=== PATIENT | female | born 1955 | race African-American/Black ===

== ENCOUNTER 2018-05-09 16:15 | Emergency (ER) | payer BC ==
[2018-05-09 17:37] LABS: Absolute Monocytes 0.6 K/uL (0.1-1.3); Absolute Neutrophil 2.2 K/uL (1.8-8.0); Basophils % 1.1 % (0-1.3); Hematocrit 43.2 % (36.0-45.0); Lymphocytes % 46.8 % (15.3-44.8); MPV 7.7 fL (7.6-11.3); Monocytes % 10.1 % (3.3-12.3); RBC Red Blood Cell Count 4.61 M/uL (3.86-4.86)
[2018-05-09 17:49] LABS: Albumin 3.9 g/dL (3.4-5.0); Bilirubin Direct 0.1 mg/dL (0-0.2); Bilirubin Total 0.6 mg/dL (0.2-1.0); Potassium 3.7 mmol/L (3.5-5.1); Protein, Total 8.4 g/dL (6.4-8.2)
--- NOTE | 2018-05-09 18:36 | RAD REPORT ---
EXAM DESCRIPTION: CT - Abdomen Pelvis W Contrast - 05/09/2018 6:28 pm COMPARISON: None. TECHNIQUE: Biphasic, helical CT imaging of the abdomen and pelvis was performed following 100 ml non -ionic IV contrast. Oral contrast was given. All CT scans are performed using dose optimization technique as appropriate and may include automated exposure control or mA/KV adjustment according to patient size. FINDINGS: No suspicious findings in the lung bases. The liver, spleen, and pancreas show no suspicious findings. Gallbladder and biliary tree are also wi thout suspicious finding. Symmetric renal function is seen with no hydronephrosis or suspicious renal mass. No pyelonephritis o r acute parenchymal process. No bladder abnormalities. No adrenal abnormalities. No dilated bowel loops or bowel wall thickening. Patient has a mobile cecum configuration with the ce cum in the anterior mid abdomen. No appendicitis findings. No free air, free fluid or inflammatory st randing. No hernia, mass or bulky lymphadenopathy. Uterus and ovaries show no suspicious findings. P hleboliths are seen in the pelvic floor. No suspicious bony findings. Degenerative disc disease evident at L3-4 and L4-5. No acute vascular fi nding. IMPRESSION: Contrast enhanced CT abdomen and pelvis showing no acute finding. Nonacute findings det elizabeth in the body of the report.
--- NOTE | 2018-05-09 18:52 | EDPHYS ---
Physician Documentation [facility] Name: Carmella Cunha Age: 62 yrs Sex: Female : 1955 Arrival Date: 05/09/2018 Time: 16:17 Bed 17 Private MD: Rubina Finch ED Physician Terry Field HPI: 05/09 18:48 This 62 yrs old Black Female presents to ER via Ambulatory with complaints of Abdominal kdr Pain, Diarrhea. 18:48 The patient presents to the emergency department with diarrhea, that is intermittent, kdr abdominal pain, of the suprapubic area, right lower quadrant and left lower quadrant, described as achy, crampy, intermittent, vague,\E\ waxing and waning. Onset: The symptoms/episode began/occurred gradually, 1 week(s) ago. Possible causes: unknown. The symptoms are aggravated by movement, food , The symptoms are alleviated by nothing. Associated signs and symptoms: The patient has no apparent associated signs or symptoms. Severity of symptoms: At their worst the symptoms were mild in the emergency department the symptoms are unchanged. The patient has not experienced similar symptoms in the past. The patient has not recently seen a physician. Historical: - Allergies: 16:21 No Known Allergies; sg - Home Meds: 16:21 None [Active]; sg - PMHx: 16:21 None; sg - PSHx: 16:21 Tubal ligation; sg - Immunization history:: Adult Immunizations up to date. - Social history:: Smoking status: Patient/guardian denies using tobacco. - Ebola Screening: : Patient negative for fever greater than or equal to 101.5 degrees Fahrenheit, and additional compatible Ebola Virus Disease symptoms Patient denies exposure to infectious person Patient denies travel to an Ebola-affected area in the 21 days before illness onset No symptoms or risks identified at this time. ROS: 18:48 Constitutional: Negative for fever, chills, and weight loss, Eyes: Negative for injury, kdr pain, redness, and discharge, ENT: Negative for injury, pain, and discharge, Neck: Negative for injury, pain, and swelling, Cardiovascular: Negative for chest pain, palpitations, and edema, Respiratory: Negative for shortness of breath, cough, wheezing, and pleuritic chest pain, Back: Negative for injury and pain, : Negative for injury, bleeding, discharge, and swelling, MS/Extremity: Negative for injury and deformity, Skin: Negative for injury, rash, and discoloration, Neuro: Negative for headache, weakness, numbness, tingling, and seizure activity. Psych: Negative for depression, anxiety, suicide ideation, homicidal ideation, and hallucinations, Allergy/Immunology: Negative for hives, rash, and allergies, Endocrine: Negative for neck swelling, polydipsia, polyuria, polyphagia, and marked weight changes, Hematologic/Lymphatic: Negative for swollen nodes, abnormal bleeding, and unusual bruising. 18:48 Abdomen/GI: Positive for abdominal pain, diarrhea, abdominal cramps, abdominal distension, Negative for black/tarry stool, rectal pain, rectal bleeding, bowel incontinence. Exam: 18:48 Constitutional: This is a well developed, well nourished patient who is awake, alert, kdr and in no acute distress. Head/Face: Normocephalic, atraumatic. Eyes: Pupils equal round and reactive to light, extra-ocular motions intact. Lids and lashes normal. Conjunctiva and sclera are non-icteric and not injected. Cornea within normal limits. Periorbital areas with no swelling, redness, or edema. Neck: Trachea midline, no thyromegaly or masses palpated, and no cervical lymphadenopathy. Supple, full range of motion without nuchal rigidity, or vertebral point tenderness. No Meningismus. Chest/axilla: Normal chest wall appearance and motion. Nontender with no deformity. No lesions are appreciated. Cardiovascular: Regular rate and rhythm with a normal S1 and S2. No gallops, murmurs, or rubs. Normal PMI, no JVD. No pulse deficits. Respiratory: Lungs have equal breath sounds bilaterally, clear to auscultation and percussion. No rales, rhonchi or wheezes noted. No increased work of breathing, no retractions or nasal flaring. Back: No spinal tenderness. No costovertebral tenderness. Full range of motion. Skin: Warm, dry with normal turgor. Normal color with no rashes, no lesions, and no evidence of cellulitis. MS/ Extremity: Pulses equal, no cyanosis. Neurovascular intact. Full, normal range of motion. Neuro: Awake and alert, GCS 15, oriented to person, place, time, and situation. Cranial nerves II-XII grossly intact. Motor strength 5/5 in all extremities. Sensory grossly intact. Cerebellar exam normal. Normal gait. Psych: Awake, alert, with orientation to person, place and time. Behavior, mood, and affect are within normal limits. 18:48 Abdomen/GI: Inspection: obese Bowel sounds: active, Palpation: soft, mild abdominal tenderness, in the suprapubic area, right lower quadrant and left lower quadrant. Vital Signs: 16:22 BP 151 / 97; Pulse 87; Resp 18; Temp 98.6; Pulse Ox 100% ; Weight 110.22 kg; Height 5 sg ft. 7 in. (170.18 cm); 17:45 BP 149 / 77; Pulse 82; Resp 18; Pulse Ox 97% on R/A; aj1 18:40 BP 147 / 81; Pulse 90; Resp 20; Pulse Ox 97% on R/A; aj1 16:22 Body Mass Index 38.06 (110.22 kg, 170.18 cm) sg MDM: 18:48 Data reviewed: vital signs, nurses notes, lab test result(s), radiologic studies. kdr Counseling: I had a detailed discussion with the patient and/or guardian regarding: the historical points, exam findings, and any diagnostic results supporting the discharge/admit diagnosis, lab results, radiology results, the need for outpatient follow up. 18:52 Patient medically screened. [facility] 05/09 16:31 Order name: Basic Metabolic Panel; Complete Time: 18:06 [facility] 05/09 16:31 Order name: CBC with Diff; Complete Time: 18:06 [facility] 05/09 16:31 Order name: Creatinine for Radiology; Complete Time: 18:06 [facility] 05/09 16:31 Order name: Hepatic Function; Complete Time: 18:06 [facility] 05/09 16:31 Order name: Lipase; Complete Time: 18:06 [facility] 05/09 18:12 Order name: CT Abd/Pelvis - W/Contrast; Complete Time: 18:47 [facility] 05/09 16:31 Order name: IV Saline Lock; Complete Time: 17:31 [facility] 05/09 16:31 Order name: Labs collected and sent; Complete Time: 17:31 kdr Administered Medications: 19:17 Drug: Cipro 500 mg Route: PO; jb4 19:18 Follow up: Response: No adverse reaction; Pain is unchanged, physician notified; jb4 Medication administered at discharge. 19:17 Drug: Flagyl 500 mg Route: PO; jb4 19:17 Follow up: Response: No adverse reaction; Medication administered at discharge. jb4 Disposition: 05/09/18 18:52 Discharged to Home. Impression: Diarrhea, unspecified, Abdominal and pelvic pain. - Condition is Stable. - Discharge Instructions: Food Choices to Help Relieve Diarrhea, Adult, Abdominal Pain, Adult, [id number], Diarrhea, Adult, [id number]. - Prescriptions for Cipro 500 mg Oral Tablet - take 1 tablet by ORAL route every 12 hours for 10 days; 20 tablet. Flagyl 500 mg Oral Tablet - take 1 tablet by ORAL route every 6 hours for 10 days; 40 tablet. Zofran 4 mg Oral Tablet - take 1 tablet by ORAL route every 12 hours As needed; 6 tablet. Tramadol 50 mg Oral Tablet - take 1 tablet by ORAL route every 8 hours as needed; 12 tablet. Lomotil 2.5- 0.025 mg Oral Tablet - take 2 tablet by ORAL route once daily As needed; 20 tablet. - Medication Reconciliation Form, Thank You Letter, Antibiotic Education, Prescription Opioid Use form. - Follow up: Rubina Finch MD; When: 2 - 3 days; Reason: If symptoms return, Further diagnostic work-up, Recheck today's complaints, Continuance of care, Re-evaluation by your physician. - Problem is an ongoing problem. - Symptoms have improved. Signatures: Dispatcher [employer] EDMS Be Begum RN RN Terry Field MD MD [facility] Faizan Randall RN RN jb4 Corrections: (The following items were deleted from the chart) 19:20 18:52 05/09/2018 18:52 Discharged to Home. Impression: Diarrhea, unspecified; Abdominal jb4 and pelvic pain. Condition is Stable. Forms are Medication Reconciliation Form, Thank You Letter, Antibiotic Education, Prescription Opioid Use. Follow up: Rubina Finch; When: 2 - 3 days; Reason: If symptoms return, Further diagnostic work-up, Recheck today's complaints, Continuance of care, Re-evaluation by your physician. Problem is an ongoing problem. Symptoms have improved. kdr
--- NOTE | 2018-05-09 18:52 | ER ---
Nurse's Notes [facility] Name: Carmella Cunha Age: 62 yrs Sex: Female : 1955 Arrival Date: 05/09/2018 Time: 16:17 Bed 17 Private MD: Rubina Finch Diagnosis: Diarrhea, unspecified;Abdominal and pelvic pain Presentation: 05/09 16:23 Presenting complaint: Patient states: Lower abd pain that is sharp, reports abdominal sg area feels bloated, pt states that she has had diarrhea for 3 days now, has been taking OTC antidiarrheal medication starting this morning, the diarrhea has lessened but the pain continues as well as having lower abd cramping, denies any urinary symptoms at this time. Transition of care: patient was not received from another setting of care. Onset of symptoms was May 09, 2018. Risk Assessment: Do you want to hurt yourself or someone else? Patient reports no desire to harm self or others. Initial Sepsis Screen: Does the patient meet any 2 criteria? No. Patient's initial sepsis screen is negative. Does the patient have a suspected source of infection? Yes: Acute abdominal pain. Care prior to arrival: None. 16:23 Method Of Arrival: Ambulatory sg 16:23 Acuity: KILO 3 sg Historical: - Allergies: 16:21 No Known Allergies; sg - Home Meds: 16:21 None [Active]; sg - PMHx: 16:21 None; sg - PSHx: 16:21 Tubal ligation; sg - Immunization history:: Adult Immunizations up to date. - Social history:: Smoking status: Patient/guardian denies using tobacco. - Ebola Screening: : Patient negative for fever greater than or equal to 101.5 degrees Fahrenheit, and additional compatible Ebola Virus Disease symptoms Patient denies exposure to infectious person Patient denies travel to an Ebola-affected area in the 21 days before illness onset No symptoms or risks identified at this time. Screenin:45 Abuse screen: Denies threats or abuse. Denies injuries from another. Nutritional aj1 screening: No deficits noted. Tuberculosis screening: No symptoms or risk factors identified. 19:00 Fall Risk IV access (20 points). Total Norman Fall Scale indicates No Risk (0-24 pts). jb4 Assessment: 17:45 General: Appears in no apparent distress. uncomfortable, Behavior is calm, cooperative, aj1 appropriate for age. Pain: Complains of pain in right lower quadrant Pain does not radiate. Quality of pain is described as sharp, Pain began 2-3 days ago. Neuro: Level of Consciousness is awake, alert, obeys commands, Oriented to person, place, time, situation. Cardiovascular: Patient's skin is warm and dry. Respiratory: Airway is patent Respiratory effort is even, unlabored, Respiratory pattern is regular, symmetrical. GI: Abdomen is round Bowel sounds present X 4 quads. Abd is soft X 4 quads Reports bloating, cramping, diarrhea, Patient currently denies vomiting. : No signs and/or symptoms were reported regarding the genitourinary system. EENT: No signs and/or symptoms were reported regarding the EENT system. Derm: No signs and/or symptoms reported regarding the dermatologic system. Skin is pink, warm \T\ dry. normal. Musculoskeletal: No signs and/or symptoms reported regarding the musculoskeletal system. Circulation, motion, and sensation intact. 18:31 Reassessment: Patient appears in no apparent distress at this time. No changes from aj1 previously documented assessment. Patient and/or family updated on plan of care and expected duration. Pain level reassessed. Patient is alert, oriented x 3, equal unlabored respirations, skin warm/dry/pink. Vital Signs: 16:22 BP 151 / 97; Pulse 87; Resp 18; Temp 98.6; Pulse Ox 100% ; Weight 110.22 kg; Height 5 sg ft. 7 in. (170.18 cm); 17:45 BP 149 / 77; Pulse 82; Resp 18; Pulse Ox 97% on R/A; aj1 18:40 BP 147 / 81; Pulse 90; Resp 20; Pulse Ox 97% on R/A; aj1 16:22 Body Mass Index 38.06 (110.22 kg, 170.18 cm) sg ED Course: 16:17 Patient arrived in ED. as 16:17 Rubina Finch MD is Private Physician. as 16:22 Arm band placed on. sg 16:25 Triage completed. sg 16:31 Terry Field MD is Attending Physician. kdr 17:13 Ana Feliciano RN is Primary Nurse. aj1 17:45 Patient has correct armband on for positive identification. Bed in low position. Call aj1 light in reach. Side rails up X 1. 17:45 No provider procedures requiring assistance completed. aj1 17:48 Inserted saline lock: 22 gauge in left antecubital area, using aseptic technique. Blood [facility] collected. 17:48 Initial lab(s) drawn, by me, sent to lab. aj1 18:14 Patient moved to ND via wheelchair. 2 18:27 CT completed. Patient tolerated procedure well. Patient moved back from ND. wi 18:28 CT Abd/Pelvis - W/Contrast In Process Unspecified. EDMS 18:51 Rubina Finch MD is Referral Physician. kdr 19:19 IV discontinued, intact, bleeding controlled. jb4 Administered Medications: 19:17 Drug: Cipro 500 mg Route: PO; jb4 19:18 Follow up: Response: No adverse reaction; Pain is unchanged, physician notified; jb4 Medication administered at discharge. 19:17 Drug: Flagyl 500 mg Route: PO; jb4 19:17 Follow up: Response: No adverse reaction; Medication administered at discharge. jb4 Outcome: 18:52 Discharge ordered by MD. kdr 19:18 Discharged to home ambulatory, with family. jb4 19:18 Condition: stable 19:18 Discharge instructions given to patient, family, Instructed on discharge instructions, follow up and referral plans. medication usage, Demonstrated understanding of instructions, follow-up care, medications, Prescriptions given X 5 19:20 Patient left the ED. jb4 Signatures: Dispatcher [employer] EDWI Ana Feliciano RN RN aj1 Be Begum RN RN sg Rittger, Kevin, MD MD kdr Martinez, Amelia as Bryson, James, RN RN jb4 Jace Jack [facility]
[2018-05-09] MEDS ORDERED: metroNIDAZOLE 500 MG TABLET ONE (19:22)
[2018-05-09] MEDS ORDERED: CIPROFLOXACIN HCL 500 MG TAB ONE (19:23)
== END 2018-05-09 19:20 | disposition home or self-care (01) ==
LOC: ER 16:15
DX: R19.7 Diarrhea, unspecified (principal)
CPT/HCPCS: 36415; 74177; 80048; 80076; 83690; 85025; 99284; Q9967

== ENCOUNTER 2018-12-07 17:13 | Emergency (ER) | payer BC, OTHER ==
[2018-12-07 18:11] LABS: Absolute Lymphocytes (CBC) 2.5 K/uL (0.7-4.9); Hematocrit 38.1 % (36.0-45.0); Lymphocytes % 33.8 % (15.3-44.8); MPV 7.6 fL (7.6-11.3); RBC Red Blood Cell Count 4.04 M/uL (3.86-4.86)
[2018-12-07 18:12] LABS: Protime INR 0.99
[2018-12-07 18:27] LABS: ALT/SGPT 27 U/L (12-78); AST/SGOT 24 U/L (15-37); Albumin 3.6 g/dL (3.4-5.0); Alkaline Phosphatase 81 U/L (45-117); BUN Blood Urea Nitrogen 15 mg/dL (7-18); Bicarbonate 29 mmol/L (21-32); Bilirubin Direct 0.1 mg/dL (0-0.2); Bilirubin Total 0.4 mg/dL (0.2-1.0); Glucose Level 116 mg/dL (74-106); Magnesium 2.2 mg/dL (1.8-2.4); NT PRO-BNP 81 pg/mL (<125); Potassium 4.2 mmol/L (3.5-5.1); Protein, Total 7.6 g/dL (6.4-8.2); Sodium Level 136 mmol/L (136-145); Troponin (Emerg Dept Use Only) < 0.02 ng/mL (0.0-0.045)
--- NOTE | 2018-12-07 19:19 | RAD REPORT ---
EXAM DESCRIPTION: Thomas Single View12/07/2018 7:06 pm CLINICAL HISTORY: sob COMPARISON: none FINDINGS: The lungs appear clear of acute infiltrate. The heart is mildly enlarged IMPRESSION: No acute abnormalities displayed
--- NOTE | 2018-12-07 19:36 | RAD REPORT ---
EXAM DESCRIPTION: USExtrem Venous W Compress Bil12/07/2018 7:20 pm CLINICAL HISTORY: Bilateral leg swelling COMPARISON: none FINDINGS: The common femoral, superficial femoral, popliteal and posterior tibial veins bilaterally are compressible and demonstrate augmentation. Doppler demonstrates good flow. IMPRESSION: No evidence of deep venous thrombosis involving either lower extremity.
--- NOTE | 2018-12-07 20:10 | ER ---
Nurse's Notes [facility] Name: Carmella Cunha Age: 63 yrs Sex: Female : 1955 Arrival Date: 12/07/2018 Time: 17:17 Bed 30 Private MD: Diagnosis: Unspecified adverse effect of drug or medicament Presentation: 12/07 17:23 Presenting complaint: Patient states: "I just took a pain pill because my right leg was aa5 hurting and then I started feeling dizzy and very nauseated". pt denies vomiting. Swelling noted to bilateral legs, pt states "I didn't know my legs were swollen". Transition of care: patient was not received from another setting of care. Onset of symptoms was December 07, 2018. Risk Assessment: Do you want to hurt yourself or someone else? Patient reports no desire to harm self or others. Initial Sepsis Screen: Does the patient meet any 2 criteria? No. Patient's initial sepsis screen is negative. Does the patient have a suspected source of infection? No. Patient's initial sepsis screen is negative. Care prior to arrival: None. 17:23 Acuity: KILO 3 aa5 17:23 Method Of Arrival: Ambulatory aa5 Historical: - Allergies: 17:24 No Known Allergies; aa5 - PMHx: 17:24 None; aa5 - PSHx: 17:24 Tubal ligation; aa5 - Immunization history:: Flu vaccine is not up to date. - Social history:: Smoking status: Patient/guardian denies using tobacco. - Ebola Screening: : No symptoms or risks identified at this time. Screenin:01 Abuse screen: Denies threats or abuse. Denies injuries from another. Nutritional mg2 screening: No deficits noted. Tuberculosis screening: No symptoms or risk factors identified. Fall Risk None identified. Assessment: 18:00 General: Appears uncomfortable, Behavior is calm, cooperative. Pain: Complains of pain tr5 in right leg and left leg Pain does not radiate. Quality of pain is described as aching. Pain: Pain Quality of pain is described as throbbing, Is intermittent, Alleviated by rest, Aggravated by increased activity. Neuro: Level of Consciousness is awake, alert, obeys commands, Oriented to person, place, situation. Cardiovascular: Heart tones present Capillary refill < 3 seconds Pulses are all present. Edema is 3+ to left ankle, left foot, right ankle and right foot. Respiratory: Airway is patent Respiratory effort is even, unlabored, Respiratory pattern is regular, symmetrical. GI: Abdomen is round Reports nausea. : No signs and/or symptoms were reported regarding the genitourinary system. EENT: No signs and/or symptoms were reported regarding the EENT system. Derm: No signs and/or symptoms reported regarding the dermatologic system. Musculoskeletal: Capillary refill < 3 seconds, Range of motion: intact in all extremities. 19:00 Reassessment: Patient appears in no apparent distress at this time. Patient and/or tr5 family updated on plan of care and expected duration. Pain level reassessed. 20:25 Reassessment: Patient appears in no apparent distress at this time. Patient is alert, aa1 oriented x 3, equal unlabored respirations, skin warm/dry/pink. Discussed d/c \\T\\ f/u instructions with pt \\T\\ spouse; denies questions or concerns at this time. Ambulatory to lobby with steady gait Patient denies pain at this time. Patient states feeling better. Vital Signs: 17:24 BP 150 / 82; Pulse 69; Resp 18 S; Temp 98.2(O); Pulse Ox 99% on R/A; Weight 111.13 kg aa5 (R); Height 5 ft. 6 in. (167.64 cm) (R); Pain 6/10; 18:30 BP 135 / 82; Pulse 60; Resp 15; Pulse Ox 100% on R/A; tr5 17:24 Body Mass Index 39.54 (111.13 kg, 167.64 cm) aa5 ED Course: 17:17 Patient arrived in ED. mr 17:20 Arm band placed on. aa5 17:24 Triage completed. aa5 17:27 Patel Villarreal, EDNA is Primary Nurse. tr5 17:32 Denilson Kuo PA is PHCP. [facility] 17:32 Kaiden Boggs MD is Attending Physician. [facility] 18:00 No provider procedures requiring assistance completed. Inserted saline lock: 22 gauge mg2 in right forearm, using aseptic technique. Blood collected. 18:01 Patient has correct armband on for positive identification. records management engineer on. Pulse mg2 ox on. NIBP on. Door closed. 18:12 Initial lab(s) drawn, by ED staff, sent to lab. EKG done, by ED staff, reviewed by Denilson Kuo PA. Patient maintains SpO2 saturation greater than 95% on room air. 18:13 Bed in low position. Call light in reach. Side rails up X 1. Side rails up X2. Warm ganesh3 blanket given. Verbal reassurance given. 19:07 XRAY Chest (1 view) In Process Unspecified. EDMS 19:21 US Extremity Venous W Compression Hi In Process Unspecified. EDMS 20:25 IV discontinued, intact, bleeding controlled, No redness/swelling at site. Pressure aa1 dressing applied. Administered Medications: No medications were administered Outcome: 20:09 Discharge ordered by MD. [facility] 20:25 Discharged to home ambulatory, with significant other. aa1 20:25 Condition: good 20:25 Discharge instructions given to patient, significant other, Instructed on discharge instructions, follow up and referral plans. Demonstrated understanding of instructions, follow-up care. 20:28 Patient left the ED. aa1 Signatures: Dispatcher [employer] EDMS Mara Hobson, RN RN aa1 Denilson Kuo, JUDE benson Rudd Leslie Ward, Madeleine, RN RN aa5 Yohan Novoa, RN RN Eliezer Bernard jp3 Patel Villarreal, RN RN tr5
--- NOTE | 2018-12-07 20:10 | EDPHYS ---
Physician Documentation [facility] Name: Carmella Cunha Age: 63 yrs Sex: Female : 1955 Arrival Date: 12/07/2018 Time: 17:17 Bed 30 Private MD: ED Physician Kaiden Boggs HPI: 12/07 17:33 This 63 yrs old Black Female presents to ER via Ambulatory with complaints of Nausea, jmm Leg Pain. 17:33 The patient presents to the emergency department with nausea. Onset: The jmm symptoms/episode began/occurred gradually, 3 hour(s) ago. Possible causes: pain medication. The symptoms are aggravated by nothing. The symptoms are alleviated by nothing. Patient complaints of right knee pain developing today. Patient states she took a tramadol, an aspirin, along with vitamins. Patient states developing nausea soon after with lightheartedness denies weakness, denies abdominal pain. . Historical: - Allergies: 17:24 No Known Allergies; aa5 - PMHx: 17:24 None; aa5 - PSHx: 17:24 Tubal ligation; aa5 - Immunization history:: Flu vaccine is not up to date. - Social history:: Smoking status: Patient/guardian denies using tobacco. - Ebola Screening: : No symptoms or risks identified at this time. ROS: 17:33 Constitutional: Negative for fever, chills, and weight loss, Cardiovascular: Negative jmm for chest pain, palpitations, and edema, Respiratory: Negative for shortness of breath, cough, wheezing, and pleuritic chest pain. 17:33 Abdomen/GI: Positive for nausea. 17:33 MS/extremity: Positive for pain. 17:33 Neuro: Positive for lightheadedness. 17:33 Psych: 17:33 All other systems are negative. Exam: 17:33 Constitutional: This is a well developed, well nourished patient who is awake, alert, jmm and in no acute distress. Head/Face: atraumatic. Eyes: EOMI, no conjunctival erythema appreciated ENT: Moist Mucus Membranes Neck: Trachea midline, Supple Chest/axilla: Normal chest wall appearance and motion. 17:33 Cardiovascular: Rate: normal, Rhythm: regular, Pulses: no pulse deficits are appreciated. 17:33 ECG was reviewed by the Attending Physician. 17:33 Respiratory: the patient does not display signs of respiratory distress, Respirations: normal, Breath sounds: are clear throughout. 17:33 Abdomen/GI: Inspection: obese Bowel sounds: normal, Palpation: abdomen is soft and non-tender, in all quadrants. 17:33 Musculoskeletal/extremity: bilateral edema noted, compartments are soft, full dorsalis pulses, NVI. 17:33 Skin: Appearance: Color: normal in color. 17:33 Neuro: Orientation: is normal, Mentation: is normal, Memory: is normal. 17:33 Psych: Behavior/mood is pleasant, cooperative. Vital Signs: 17:24 BP 150 / 82; Pulse 69; Resp 18 S; Temp 98.2(O); Pulse Ox 99% on R/A; Weight 111.13 kg aa5 (R); Height 5 ft. 6 in. (167.64 cm) (R); Pain 6/10; 18:30 BP 135 / 82; Pulse 60; Resp 15; Pulse Ox 100% on R/A; tr5 17:24 Body Mass Index 39.54 (111.13 kg, 167.64 cm) aa5 MDM: 17:33 Patient medically screened. [facility] 18:52 Data reviewed: vital signs, nurses notes. kelley 20:06 Data reviewed: lab test result(s), EKG, radiologic studies, plain films. Counseling: Carlos Eduardo benson had a detailed discussion with the patient and/or guardian regarding: the historical points, exam findings, and any diagnostic results supporting the discharge/admit diagnosis, lab results, radiology results, the need for outpatient follow up, to return to the emergency department if symptoms worsen or persist or if there are any questions or concerns that arise at home. ED course: Patient states that she feels much better. Symptoms appear to be related to patient ingestion of tramadol. Patient given return precautions. Patient has no abdominal pain, nausea, shortness of breath, chest pain, weakness on discharge. Patient was otherwise advised to return to the ED if symptoms return. . 12/07 17:46 Order name: Basic Metabolic Panel; Complete Time: 18:32 [facility] 12/07 17:46 Order name: CBC with Diff; Complete Time: 18:20 [facility] 12/07 17:46 Order name: LFT's; Complete Time: 18:32 [facility] 12/07 17:46 Order name: Magnesium; Complete Time: 18:32 [facility] 12/07 17:46 Order name: NT PRO-BNP; Complete Time: 18:32 [facility] 12/07 17:46 Order name: PT-INR; Complete Time: 18:20 [facility] 12/07 17:46 Order name: Troponin (emerg Dept Use Only); Complete Time: 18:32 [facility] 12/07 17:46 Order name: XRAY Chest (1 view); Complete Time: 19:36 [facility] 12/07 17:46 Order name: Cardiac monitoring; Complete Time: 17:59 [facility] 12/07 17:46 Order name: EKG - Nurse/Tech; Complete Time: 17:59 [facility] 12/07 17:46 Order name: IV Saline Lock; Complete Time: 17:59 [facility] 12/07 17:46 Order name: Labs collected and sent; Complete Time: 17:59 [facility] 12/07 17:46 Order name: US Extremity Venous W Compression Hi; Complete Time: 19:44 [facility] 12/07 17:46 Order name: O2 Per Protocol; Complete Time: 17:59 [facility] 12/07 17:46 Order name: O2 Sat Monitoring; Complete Time: 17:59 jmm EC:33 Rate is 57 beats/min. Rhythm is regular. QRS [place] is Normal. IA interval is normal. QRS jmm interval is normal. QT interval is normal. T waves are Normal. No ST changes noted. Reviewed by me. Administered Medications: No medications were administered Disposition: 12/07/18 20:09 Discharged to Home. Impression: Unspecified adverse effect of drug or medicament. - Condition is Stable. - Medication Reconciliation Form, Thank You Letter, Antibiotic Education, Prescription Opioid Use form. - Follow up: Private Physician; When: 2 - 3 days; Reason: Recheck today's complaints, Continuance of care, Re-evaluation by your physician. Addendum: 12/09/2018 09:06 Co-signature as Attending Physician, Kaiden Boggs MD I agree with the assessment and c jimenez plan of care. Signatures: Dispatcher [employer] Mara Michel RN RN aa1 Kaiden Boggs MD MD cha Mickail, Joel, PA PA Madeleine Newton RN RN aa5 Corrections: (The following items were deleted from the chart) 12/07 20:28 20:09 12/07/2018 20:09 Discharged to Home. Impression: Unspecified adverse effect of aa1 drug or medicament. Condition is Stable. Forms are Medication Reconciliation Form, Thank You Letter, Antibiotic Education, Prescription Opioid Use. Follow up: Private Physician; When: 2 - 3 days; Reason: Recheck today's complaints, Continuance of care, Re-evaluation by your physician. kelley
[2018-12-07 20:37] VITALS: TEMP 98.2
[2018-12-07 20:38] VITALS: BP 135/82; O2SAT 100
== END 2018-12-07 20:28 | disposition home or self-care (01) ==
LOC: ER 17:13
DX: R11.0 Nausea (principal); T40.4X5A Adverse effect of other synthetic narcotics, initial encounter; Y92.9 Unspecified place or not applicable
CPT/HCPCS: 36415; 71045; 80048; 80076; 83735; 83880; 84484; 85025; 85610; 93970; 99285